=== PATIENT | female | born 1940 | race Caucasian/White ===

== ENCOUNTER 2017-05-05 10:48 | Emergency (ER) | payer MEDICARE, BC ==
[2017-05-05] MEDS ORDERED: Lidocaine 2% Jelly 10 ML Urojet MUCMEM ONE (13:19)
[2017-05-05 14:49] VITALS: BP 128/69
--- NOTE | 2017-05-05 20:10 | EDM.PDOC ---
ED HPI GENERAL MEDICAL PROBLEM - General Chief Complaint: Genitourinary Problem Stated Complaint: SENT FROM CLINIC PROBLEM INSERTING CATHETER Time Seen by Provider: 05/05/17 12:13 Source of Information: Reports: Patient History Limitations: Reports: No Limitations - History of Present Illness INITIAL COMMENTS - FREE TEXT/NARRATIVE: This lady is an ovarian cancer patient and was sent over from the clinic. Clinic was unable to insert a Lozoya catheter She lives in [place] where she gets treatment but she's staying at a cabin up here. She went to the clinic this morning because she's been unable to void last night. She's passing some blood per vagina also. This patient takes Xarelto because she's had some problems with pulmonary emboli. She also complains of a 23 pound weight gain in the past month. She's followed by an structured cabling technician Dr. Perez and Caio. She does have a history of recurrent UTIs and so takes antibiotics daily. She had a pelvic exam on April 07 by her oncologist. - Related Data Allergies Allergy/AdvReac Type Severity Reaction Status Date / Time mercury (elemental) Allergy Swelling Verified 05/05/17 11:00 Home Meds: Home Meds Ascorbic Acid [C-1000 with Tea Hips] 05/05/17 [History] Calcium Carbonate/Vitamin D3 [Calcium 600 + Vit D 200] 05/05/17 [History] Cefuroxime [Ceftin] 05/05/17 [History] Enoxaparin [Lovenox] 05/05/17 [History] Esomeprazole Magnesium [Nexium] 40 mg PO DAILY 05/05/17 [History] Multivitamin/Iron/Folic Acid [Centrum Adults Tablet] 1 tab PO DAILY 05/05/17 [ History] [place]-3 Fatty Acids [[place]-3] 600 mg PO DAILY 05/05/17 [History] Pyridoxine HCl 100 mg PO DAILY 05/05/17 [History] Rivaroxaban [Xarelto] 20 mg PO DAILY 05/05/17 [History] Valsartan/Hydrochlorothiazide [Diovan Hct 160-25 mg Tablet] 1 tab PO DAILY 05/05 [History] atorvaSTATin [Lipitor] 40 mg PO 05/05/17 [History] Past Medical History HEENT History: Reports: Hard of Hearing Cardiovascular History: Reports: High Cholesterol Respiratory History: Reports: PE Musculoskeletal History: Reports: Fracture Hematologic History: Reports: Anemia Oncologic (Cancer) History: Reports: Ovarian - Past Surgical History HEENT Surgical History: Reports: Cataract Surgery GI Surgical History: Reports: Appendectomy Female Surgical History: Reports: Hysterectomy Social & Family History - Tobacco Use Smoking Status *Q: Never Smoker - Caffeine Use Caffeine Use: Reports: Coffee - Recreational Drug Use Recreational Drug Use: No ED ROS GENERAL - Review of Systems Review Of Systems: ROS reveals no pertinent complaints other than HPI. ED EXAM, GI/ABD - Physical Exam Exam: See Below Exam Limited By: No Limitations General Appearance: Alert, WD/WN, No Apparent Distress Eyes: Bilateral: Normal Appearance Throat/Mouth: Normal Oropharynx Head: Atraumatic Neck: Normal Inspection Respiratory/Chest: Lungs Clear Cardiovascular: Regular Rate, Rhythm, No Murmur GI/Abdominal: Soft, Non-Tender (Bladder not palpable) (Female) Exam: Other ( exam did show some bloody fluid coming from the vagina which turned out to be actually bloody urine.) Back Exam: Normal Inspection Extremities: Other (Some mild to moderate swelling of the right thigh) Neurological: Alert, Oriented, No Motor/Sensory Deficits Psychiatric: Normal Affect Skin Exam: Warm, Dry Course - Vital Signs Last Recorded V/S: Last Vital Signs Temp 36.1 C 05/05/17 11:16 Pulse 87 05/05/17 14:48 Resp 18 05/05/17 14:48 BP 128/69 05/05/17 14:48 Pulse Ox 98 05/05/17 14:48 - Orders/Labs/Meds Orders: Active Orders 24 hr Category Date Time Status Lozoya Catheter Insertion [Insert Urinary Catheter] [OM. Care 05/05/17 12:45 Ordered PC] Q24H Urinary Catheter Assessment [RC] ASDIRECTED Care 05/05/17 12:38 Active Labs: Laboratory Tests 05/05/17 05/05/17 Range/Units 12:46 12:46 WBC 4.0 L (4.5-11.0) K/uL RBC 2.99 L (3.30-5.50) M/uL Hgb 9.6 L (12.0-15.0) g/dL Hct 30.0 L (36.0-48.0) % MCV 100 H (80-98) fL MCH 32 H (27-31) pg MCHC 32 (32-36) % Plt Count 309 (150-400) K/uL Neut % (Auto) 73 H (36-66) % Lymph % (Auto) 19 L (24-44) % [place] % (Auto) 8 H (2-6) % Eos % (Auto) 0 L (2-4) % Baso % (Auto) 0 (0-1) % Sodium 137 L (140-148) mmol/L Potassium 3.6 (3.6-5.2) mmol/L Chloride 103 (100-108) mmol/L Carbon Dioxide 30 (21-32) mmol/L Anion Gap 7.6 (5.0-14.0) mmol/L BUN 26 H (7-18) mg/dL Creatinine 1.0 (0.6-1.0) mg/dL Est Cr Clr Drug Dosing 33.70 mL/min Estimated GFR (MDRD) 54 L (>60) Glucose 91 (74-106) mg/dL Calcium 8.9 (8.5-10.1) mg/dL Meds: Medications Discontinued Medications Generic Name Dose Route Start Last Admin Trade Name Freq PRN Reason Stop Dose Admin Lidocaine HCl 10 ml 05/05/17 13:19 05/05/17 15:27 Xylocaine 2% Jelly MUCMEM 05/05/17 13:20 Not Given ONETIME ONE - Re-Assessments/Exams Free Text/Narrative Re-Assessment/Exam: 05/05/17 20:07 A Lozoya catheter was inserted in the bladder. A bladder scan had been done showing only about 170 mL of urine however it was uncertain if the bladder could be palpated or not. We did obtain about 170 mL of of bright red bloody urine. But the catheter bag did not still. We did however get back a continuous flow of blood-tinged urine. The vagina which indicated cystoscopy vaginal fistula. I spoke with Dr. Perez in [place]. And she wanted her followed up there however because the patient continues to pass blood and she's already anemic we will instead send her to [place] where she will be accepted by Dr. Amor the hospitalist button bradder at either [facility] or [facility]. See nurse's notes for clarification Departure - Departure Time of Disposition: 20:10 Disposition: DC/Tfer to Acute Hospital 02 Clinical Impression: Hematuria syndrome, Ovarian cancer - Discharge Information Referrals: PCP,None [Primary Care Provider] - Forms: ED Department Discharge - My Orders Last 24 Hours: My Active Orders 05/05/17 12:38 Urinary Catheter Assessment [RC] ASDIRECTED 05/05/17 12:45 Lozoya Catheter Insertion [Insert Urinary Catheter] [OM.PC] Q24H - Assessment/Plan Last 24 Hours: My Active Orders 05/05/17 12:38 Urinary Catheter Assessment [RC] ASDIRECTED 05/05/17 12:45 Lozoya Catheter Insertion [Insert Urinary Catheter] [OM.PC] Q24H
== END 2017-05-05 16:00 ==
LOC: JP.ED 10:48
DX: C56.9 Malignant neoplasm of unspecified ovary (principal); R31.9 Hematuria, unspecified; E78.00 Pure hypercholesterolemia, unspecified; D64.9 Anemia, unspecified; Z98.49 Cataract extraction status, unspecified eye; Z90.49 Acquired absence of other specified parts of digestive tract; Z90.710 Acquired absence of both cervix and uterus; Z79.899 Other long term (current) drug therapy; Z91.09 Other allergy status, other than to drugs and biological substances
CPT/HCPCS: 36415; 51702; 80048; 85025; 99284-25; 99285